=== PATIENT | female | born 1995 | race Caucasian/White ===

== ENCOUNTER 2016-08-22 06:36 | Emergency (ER) | payer OTHER ==
[~2016-08-22] VITALS: Ht 167.6 cm; Wt 61.1 kg
[2016-08-22 06:40] VITALS: TEMP 36.7; Ht 167.6 cm; Wt 61.1 kg
[2016-08-22] MEDS ORDERED: SODIUM CHLORIDE 0.9% 1000ML 1,000 ML IV STA ×2 (06:56)
[2016-08-22] MEDS ORDERED: ONDANSETRON INJ 2 MG/ML 2 ML VIAL IV STA (06:56)
--- NOTE | 2016-08-22 07:00 | EMERGENCY ROOM VISIT NOTE ---
History Report prepared by Cari: Mali Mueller Under the Supervision of: Christina HendricksonO. First contact with patient: 06:47 Chief Complaint: BACK PAIN Stated Complaint: LWR BACK AND ABDOMINAL PAIN History of Present Illness The patient is a 21 year old female who presents to the Emergency Room with complaints of persistent right sided low back pain that began this morning. She currently rates her discomfort as an 8/10 in severity. The patient states that she noticed the pain this morning and additionally notices her pain in her right lower quadrant as well. She notes a small amount of thick bloody discharge a few days ago. The patient denies being sexually active, stating that she was last one year ago. She notes some slight nausea this morning. The patient denies any hematuria, dysuria, or increased urination. She states that yesterday was the last day of her menstrual cycle. The patient denies any active medical problems or previous surgeries. She denies any tobacco use or recent alcohol use. Source of History: patient Onset: this morning Position: back (lower, right) Symptom Intensity: 8/10 Timing: other (persistent) Associated Symptoms: + abdominal pain, + nausea, No urinary symptoms Note: Associated Symptoms: thick bloody discharge Review of Systems See HPI for pertinent positives & negatives. A total of 10 systems reviewed and were otherwise negative. Past Medical & Surgical Medical Problems: (1) No active medical problems Family History Cancer Social History Smoking Status: Never Smoker Smokeless Tobacco Use: No Alcohol Use: occasionally Marital Status: single Housing Status: lives with family Occupation Status: [employer] student Current/Historical Medications Scheduled Control Pills ( Control Pills), 1 TAB PO DAILY Ibuprofen (Motrin), 800 MG PO Q8H Ondasetron Odt (Zofran Odt), 4 MG SL Q6H Scheduled PRN Oxycodone Immediate Rel Tab (Roxicodone Ir), 1 TAB PO Q4H PRN for Severe Pain Allergies Coded Allergies: No Known Allergies (Unverified , 08/22/16) Physical Exam Vital Signs Date Time Temp Pulse Resp B/P Pulse Ox O2 Delivery O2 Flow Rate FiO2 08/22/16 10:25 75 16 112/60 98 Room Air 08/22/16 10:11 77 08/22/16 08:14 86 16 138/91 100 Room Air 08/22/16 07:11 82 08/22/16 06:40 36.7 81 18 141/98 97 Room Air Physical Exam GENERAL: Patient is awake, alert, somewhat anxious and uncomfortable appearing. EYES: The conjunctivae are clear. The pupils are round and reactive. EARS, NOSE, MOUTH AND THROAT: The nose is without any evidence of any deformity. Mucous membranes are moist tongue is midline NECK: The neck is nontender and supple. RESPIRATORY: Normal respiratory effort is noted there is no evidence of wheezing rhonchi or rales CARDIOVASCULAR: Regular rate and rhythm noted there no murmurs rubs or gallops normal S1 normal S2 GASTROINTESTINAL: Soft. Right middle and right lower quadrant tenderness to palpation. No guarding or rigidity noted. BACK: No midline tenderness or or step-off noted range of motion in flexion extension as well as rotation no signs of muscle spasm noted MUSCULOSKELETAL/EXTREMITIES: There is no evidence of gross deformity full range of motion is noted in the hips and shoulders SKIN: There is no obvious evidence of any rash. There are no petechiae, pallor or cyanosis noted. NEUROLOGIC: Patient is awake alert and oriented x3. Medical Decision & Procedures ER Provider Diagnostic Interpretation: Radiology results as stated below per my review and radiologist interpretation: RENAL ULTRASOUND HISTORY: Flank pain right side pain COMPARISON: None. FINDINGS: Right kidney: No hydronephrosis. Slight fullness right renal collecting system and/or pelvis. Normal cortical medullary differentiation. Left kidney: No hydronephrosis. Normal corticomedullary differentiation and cortical thickness. Bladder: No bladder wall thickening. The bilateral ureteral jets were identified. IMPRESSION: Slight fullness right renal pelvis. Otherwise negative study Electronically signed by: Derick Delarosa M.D. 08/22/2016 7:54 AM Dictated Date/Time: 08/22/2016 7:53 AM KUB CLINICAL HISTORY: ABDOMINAL PAIN/GI pain. Nausea. COMPARISON STUDY: No previous studies for comparison. FINDINGS: The soft tissues, psoas shadows, renal outlines and intestinal gas pattern appear normal. There is no evidence for bowel obstruction. No abnormal abdominal calcifications are seen. IMPRESSION: Normal study. Electronically signed by: Dercik Delarosa M.D. 08/22/2016 7:59 AM Dictated Date/Time: 08/22/2016 7:59 AM APPENDIX ULTRASOUND HISTORY: Pain. Flank pain. right sided pain COMPARISON: None. FINDINGS: Transabdominal scanning of the right lower quadrant was performed. The appendix was not identified. There are no fluid collections or masses within the right lower quadrant. IMPRESSION: The appendix was not identified. Electronically signed by: Derick Dlearosa M.D. 08/22/2016 7:53 AM Dictated Date/Time: 08/22/2016 7:[address] SCAN OF THE ABDOMEN AND PELVIS WITHOUT IV CONTRAST CLINICAL HISTORY: Right lower quadrant abdominal pain. COMPARISON STUDY: Renal ultrasound and right lower quadrant ultrasound dated 08/22/2016. TECHNIQUE: CT scan of the abdomen and pelvis is performed from the lung bases to the proximal femora. Images are reviewed in the axial, sagittal, and coronal planes. IV contrast was not administered for this examination as per the referring clinician. Automated dose control exposure was utilized. CT DOSE: 385.68 mGycm FINDINGS: Lung bases: The heart is normal in size and without pericardial effusion. The lung bases are clear. Liver: The unenhanced liver is normal in size, contour, and attenuation. There is no intrahepatic biliary ductal dilatation. Gallbladder: Unremarkable. Spleen: Normal in size and attenuation. Pancreas: Unremarkable. Adrenal glands: Unremarkable. Kidneys: The unenhanced kidneys are normal in size. There is a 3 mm obstructing calculus in the distal right ureter best seen on image #390. This is located approximately 1 cm above the vesicoureteral junction and causes minimal right-sided hydronephrosis. No additional calculus is seen in either kidney. There is no left-sided hydronephrosis. There is no evidence of contour deforming renal mass lesion. Abdominal vasculature: The abdominal aorta is normal in course and caliber. Bowel: The small bowel and colon are normal in course and caliber. There is moderate colonic fecal retention. The appendix is well-visualized and normal. Peritoneum: There is no intraperitoneal free air or abdominal ascites. There is a small fat-containing umbilical hernia. A naval piercing is noted. Lymphadenopathy: None. Pelvic viscera: The bladder, uterus, and adnexa are normal as visualized. Small ovarian follicles are observed. Skeletal structures: No lytic or blastic lesions are seen. IMPRESSION: 1. There is a 3 mm obstructing calculus in the distal right ureter approximately 1 cm above the vesicoureteral junction. This causes minimal right-sided hydronephrosis. 2. No additional calculi are identified in either kidney. Electronically signed by: Karri Dumont M.D. 08/22/2016 9:58 AM Dictated Date/Time: 08/22/2016 9:48 AM Laboratory Results 08/22/16 06:50 Red Blood Count 5.14, Mean Corpuscular Volume 83.7, Mean Corpuscular Hemoglobin 28.2, Mean Corpuscular Hemoglobin Concent 33.7, Mean Platelet Volume 9.9, Neutrophils (%) (Auto) 47.0, Lymphocytes (%) (Auto) 39.2, Monocytes (%) (Auto) 9.3, Eosinophils (%) (Auto) 3.8, Basophils (%) (Auto) 0.6, Neutrophils # (Auto) 3.39, Lymphocytes # (Auto) 2.82, Monocytes # (Auto) 0.67, Eosinophils # (Auto) 0.27, Basophils # (Auto) 0.04 08/22/16 06:50 Test 08/22/16 06:50 08/22/16 08:10 White Blood Count 7.20 K/uL (4.8-10.8) Red Blood Count 5.14 M/uL (4.2-5.4) Hemoglobin 14.5 g/dL (12.0-16.0) Hematocrit 43.0 % (37-47) Mean Corpuscular Volume 83.7 fL (80-100) Mean Corpuscular Hemoglobin 28.2 pg (25-34) Mean Corpuscular Hemoglobin Concent 33.7 g/dl (32-36) Platelet Count 298 K/uL (130-400) Mean Platelet Volume 9.9 fL (7.4-10.4) Neutrophils (%) (Auto) 47.0 % Lymphocytes (%) (Auto) 39.2 % Monocytes (%) (Auto) 9.3 % Eosinophils (%) (Auto) 3.8 % Basophils (%) (Auto) 0.6 % Neutrophils # (Auto) 3.39 K/uL (1.4-6.5) Lymphocytes # (Auto) 2.82 K/uL (1.2-3.4) Monocytes # (Auto) 0.67 K/uL (0.11-0.59) Eosinophils # (Auto) 0.27 K/uL (0-0.5) Basophils # (Auto) 0.04 K/uL (0-0.2) RDW Standard Deviation 40.8 fL (36.4-46.3) RDW Coefficient of Variation 13.4 % (11.5-14.5) Immature Granulocyte % (Auto) 0.1 % Immature Granulocyte # (Auto) 0.01 K/uL (0.00-0.02) Anion Gap 7.0 mmol/L (3-11) Est Creatinine Clear Calc Drug Dose 84.1 ml/min Estimated GFR () 94.4 Estimated GFR (Non- 81.5 BUN/Creatinine Ratio 13.8 (10-20) Calcium Level 9.0 mg/dl (8.5-10.1) Total Bilirubin 0.3 mg/dl (0.2-1) Direct Bilirubin < 0.1 mg/dl (0-0.2) Aspartate Amino Transf (AST/SGOT) 16 U/L (15-37) Alanine Aminotransferase (ALT/SGPT) 17 U/L (12-78) Alkaline Phosphatase 66 U/L (45-117) Total Protein 7.5 gm/dl (6.4-8.2) Albumin 4.0 gm/dl (3.4-5.0) Lipase 129 U/L (73-393) Human Chorionic Gonadotropin, Qual NEG (NEG) Urine Color DK YELLOW Urine Appearance CLOUDY (CLEAR) Urine pH 5.0 (4.5-7.5) Urine Specific [place] 1.030 (1.000-1.030) Urine Protein TRACE (NEG) Urine Glucose (UA) NEG (NEG) Urine Ketones NEG (NEG) Urine Occult Blood 3+ (NEG) Urine Nitrite NEG (NEG) Urine Bilirubin NEG (NEG) Urine Urobilinogen NEG (NEG) Urine Leukocyte Esterase TRACE (NEG) Urine WBC (Auto) 5-10 /hpf (0-5) Urine RBC (Auto) >30 /hpf (0-4) Urine Hyaline Casts (Auto) 1-5 /lpf (0-5) Urine Epithelial Cells (Auto) >30 /lpf (0-5) Urine Bacteria (Auto) NEG (NEG) Laboratory results per my review. Medications Administered Medications (Trade) Dose Ordered Sig/Calixto Route Start Time Stop Time Status Last Admin Dose Admin Sodium Chloride 1,000 ml @ 999 mls/hr Q1H1M STAT IV 08/22/16 06:56 08/22/16 07:56 DC 08/22/16 07:04 999 MLS/HR Sodium Chloride (Nss 1000ml) 1,000 ml @ 250 mls/hr Q4H STAT IV 08/22/16 06:56 08/22/16 10:55 DC 08/22/16 08:15 250 MLS/HR Morphine Sulfate (MoRPHine SULFATE INJ) 4 mg Q15M PRN IV 08/22/16 07:00 08/22/16 11:21 DC 08/22/16 10:30 4 MG Ondansetron HCl (Zofran Inj) 4 mg NOW STAT IV 08/22/16 06:56 08/22/16 06:59 DC 08/22/16 07:04 4 MG ED Course 0652: The patient was evaluated in room B2. A complete history and physical examination were performed. 0656: Ordered Zofran Inj 4 mg IV, Sodium Chloride 1000 ml @ 250 mls/hr IV, Sodium Chloride 1000 ml @ 999 mls/hr IV. 0700: Ordered Morphine sulfate 4 mg IV. 0757: I reevaluated the patient and she is feeling better. I updated her on her exam findings thus far. 0843: I reevaluated the patient and she is resting comfortably. 1016: I reevaluated the patient and she is resting comfortably. I discussed the exam findings with her and I discussed the treatment plan. She verbalized complete understanding and agreement. She is ready to go home. Medical Decision Differential diagnosis: Etiologies such as appendicitis, diverticulitis, PUD, biliary pathology, UTI, pancreatitis, obstruction, mesenteric ischemia, aortic pathology, infections, inflammatory bowel disease, renal colic, as well as others were entertained. Nursing notes reviewed. The patient is a 21-year-old female who presented to the emergency department for an evaluation of right flank pain and right lower quadrant abdominal pain. The patient's physical exam was consistent with reproducible right lower quadrant tenderness. I was unsure if the patient was suffering from a kidney stone or possibly appendicitis. She had no right upper quadrant tenderness to palpation. The patient was treated with IV fluids IV pain medicine and IV antiemetics. Ultrasound of the appendix was not able to visualize the appendix. Ultrasound of the retroperitoneal did reveal mild fullness of the right collecting system but no definite hydronephrosis an x-ray did not reveal definite calcification consistent with ureteral calculi. This reason a CT the abdomen and pelvis was obtained. It did not show signs of appendicitis but did show signs of a distal right ureteral calculus. I discussed the patient's laboratory and radiographic studies with her. I did not start the patient on Flomax because I do believe the risks would outweigh the benefits in this patient especially with the risk of orthostatic hypotension. The patient was encouraged to drink plenty clear liquids and continue all medications as prescribed. He was also encouraged to follow-up with her primary care physician this week for reevaluation. She was also encouraged to return to the emergency Department immediately if symptoms change worsen or if the need arises. Impression Primary Impression: Kidney stone Additional Impressions: Right flank pain Right sided abdominal pain Scribe Attestation The scribe's documentation has been prepared under my direction and personally reviewed by me in its entirety. I confirm that the note above accurately reflects all work, treatment, procedures, and medical decision making performed by me. Departure Information Dispostion Home / Self-Care Prescriptions Ondasetron Odt (ZOFRAN ODT) 4 Mg Tab 4 MG SL Q6H for Nausea, #10 TAB Prov: Mega Torres, DO 08/22/16 Oxycodone Immediate Rel Tab (ROXICODONE IR) 5 Mg Tab 1 TAB PO Q4H Y for Severe Pain, #15 TAB Prov: Mega Torres, DO 08/22/16 Referrals No Doctor, Assigned (PCP) Forms HOME CARE DOCUMENTATION FORM, IMPORTANT VISIT INFORMATION, School Instructions Patient Instructions Kidney Stones Expectant [facility], [facility] Additional Instructions Continue all medications as prescribed. Drink plenty of clear liquids. Continue using Motrin and Tylenol as directed for pain. Follow-up with [facility] this week for reevaluation. You may require a referral to a urologist if symptoms do not improve. Problem Qualifiers
[2016-08-22] MEDS: MoRPHine SULFATE 4 MG/ML 1 ML CARP\\VIAL IV PRN ×2 (07:04→10:30)
[2016-08-22 07:08] LABS: BASO % 0.6 %; BASO ABS # 0.04 K/uL (0-0.2); COMPLETE YES; EOS % 3.8 %; IG% 0.1 %; LYMPH % 39.2 %; LYMPH ABS # 2.82 K/uL (1.2-3.4); MEAN CELL VOLUME 83.7 fL (80-100); MEAN CORPUSCULAR HEMOGLOBIN 28.2 pg (25-34); MEAN CORPUSCULAR HGB CONC 33.7 g/dl (32-36); MEAN PLATELET VOLUME 9.9 fL (7.4-10.4); MONO % 9.3 %; PLATELET COUNT 298 K/uL (130-400); RED BLOOD COUNT 5.14 M/uL (4.2-5.4)
[2016-08-22] MEDS ORDERED: BCPILLS PO (07:08)
[2016-08-22] MEDS ORDERED: IBUP-1428 PO (07:08)
[2016-08-22 07:18] LABS: ALT/SGPT 17 U/L (12-78); AST/SGOT 16 U/L (15-37); BLOOD UREA NITROGEN 14 mg/dl (7-18); BUN/CREATININE RATIO 13.8 (10-20); CARBON DIOXIDE 29 mmol/L (21-32); CHLORIDE 106 mmol/L (98-107); CREATININE 0.99 mg/dl (0.60-1.20); GLUCOSE 99 mg/dl (70-99); POTASSIUM 3.5 mmol/L (3.5-5.1); SODIUM 142 mmol/L (136-145)
[2016-08-22 07:21] LABS: ALKALINE PHOSPHATASE 66 U/L (45-117)
[2016-08-22 07:31] LABS: PREG INTERNAL NEGATIVE QC NEG CLEAR BACKGROUND; PREG INTERNAL POSITIVE QC POS CONTROL LINE
--- NOTE | 2016-08-22 07:54 | DIAGNOSTIC IMAGING REPORT ---
APPENDIX ULTRASOUND HISTORY: Pain. Flank pain. right sided pain COMPARISON: None. FINDINGS: Transabdominal scanning of the right lower quadrant was performed. The appendix was not identified. There are no fluid collections or masses within the right lower quadrant. IMPRESSION: The appendix was not identified. Electronically signed by: Derick Delarosa M.D. 08/22/2016 7:53 AM Dictated Date/Time: 08/22/2016 7:53 AM
--- NOTE | 2016-08-22 07:55 | DIAGNOSTIC IMAGING REPORT ---
RENAL ULTRASOUND HISTORY: Flank pain right side pain COMPARISON: None. FINDINGS: Right kidney: No hydronephrosis. Slight fullness right renal collecting system and/or pelvis. Normal cortical medullary differentiation. Left kidney: No hydronephrosis. Normal corticomedullary differentiation and cortical thickness. Bladder: No bladder wall thickening. The bilateral ureteral jets were identified. IMPRESSION: Slight fullness right renal pelvis. Otherwise negative study Electronically signed by: Derick Delarosa M.D. 08/22/2016 7:54 AM Dictated Date/Time: 08/22/2016 7:53 AM
--- NOTE | 2016-08-22 08:00 | DIAGNOSTIC IMAGING REPORT ---
KUB CLINICAL HISTORY: ABDOMINAL PAIN/GI pain. Nausea. COMPARISON STUDY: No previous studies for comparison. FINDINGS: The soft tissues, psoas shadows, renal outlines and intestinal gas pattern appear normal. There is no evidence for bowel obstruction. No abnormal abdominal calcifications are seen. IMPRESSION: Normal study. Electronically signed by: Derick Delarosa M.D. 08/22/2016 7:59 AM Dictated Date/Time: 08/22/2016 7:59 AM
[2016-08-22 08:38] LABS: URINE APPEARANCE CLOUDY (CLEAR); URINE BILIRUBIN NEG (NEG); URINE COLOR DK YELLOW; URINE EPITHELIAL CELL AUTO >30 /lpf (0-5); URINE NITRITE NEG (NEG); UROBILINOGEN NEG (NEG)
[2016-08-22 08:39] LABS: MANUAL MICROSCOPIC REQUIRED? NO; REVIEW REQ? NO
--- NOTE | 2016-08-22 09:59 | DIAGNOSTIC IMAGING REPORT ---
CT SCAN OF THE ABDOMEN AND PELVIS WITHOUT IV CONTRAST CLINICAL HISTORY: Right lower quadrant abdominal pain. COMPARISON STUDY: Renal ultrasound and right lower quadrant ultrasound dated 08/22/2016. TECHNIQUE: CT scan of the abdomen and pelvis is performed from the lung bases to the proximal femora. Images are reviewed in the axial, sagittal, and coronal planes. IV contrast was not administered for this examination as per the referring clinician. Automated dose control exposure was utilized. CT DOSE: 385.68 mGycm FINDINGS: Lung bases: The heart is normal in size and without pericardial effusion. The lung bases are clear. Liver: The unenhanced liver is normal in size, contour, and attenuation. There is no intrahepatic biliary ductal dilatation. Gallbladder: Unremarkable. Spleen: Normal in size and attenuation. Pancreas: Unremarkable. Adrenal glands: Unremarkable. Kidneys: The unenhanced kidneys are normal in size. There is a 3 mm obstructing calculus in the distal right ureter best seen on image #390. This is located approximately 1 cm above the vesicoureteral junction and causes minimal right-sided hydronephrosis. No additional calculus is seen in either kidney. There is no left-sided hydronephrosis. There is no evidence of contour deforming renal mass lesion. Abdominal vasculature: The abdominal aorta is normal in course and caliber. Bowel: The small bowel and colon are normal in course and caliber. There is moderate colonic fecal retention. The appendix is well-visualized and normal. Peritoneum: There is no intraperitoneal free air or abdominal ascites. There is a small fat-containing umbilical hernia. A naval piercing is noted. Lymphadenopathy: None. Pelvic viscera: The bladder, uterus, and adnexa are normal as visualized. Small ovarian follicles are observed. Skeletal structures: No lytic or blastic lesions are seen. IMPRESSION: 1. There is a 3 mm obstructing calculus in the distal right ureter approximately 1 cm above the vesicoureteral junction. This causes minimal right-sided hydronephrosis. 2. No additional calculi are identified in either kidney. Electronically signed by: Karri Dumont M.D. 08/22/2016 9:58 AM Dictated Date/Time: 08/22/2016 9:48 AM
[2016-08-22 10:25] VITALS: BP 112/60; PULSE 75; O2SAT 98
[2016-08-22] MEDS ORDERED: OXYC1TAB3 PO (10:30)
[2016-08-22] MEDS ORDERED: ONDA4TAB10 SL (10:31)
== END 2016-08-22 10:52 | disposition home or self-care (01) ==
LOC: C.EDB 06:37
DX: N20.0 Calculus of kidney (principal); Z80.9 Family history of malignant neoplasm, unspecified